=== PATIENT | male | born 1955 | race Hispanic/Latino ===

== ENCOUNTER 2016-08-20 11:11 | Day surgery (SDC) | payer OTHER ==
[~2016-08-20] VITALS: Ht 170.2 cm; Wt 80.7 kg
[~2016-08-20 11:11] MED LIST: AMLODIPINE5 MG PO; CYCLOBENZAPR10 MG PO; GARLIC1000 MG PO; GLUCOTROL EXTE2.5 M1 PO; METOPROLOL TART50 MG PO; MULTI VITAMIN A1 TAB PO; PROTONIX40 M2 PO; SAW PALMETTO160 MG PO; TIZANIDINE2 MG PO
[2016-08-20 14:58] VITALS: BP 124/70
== END 2016-08-20 14:45 | disposition home or self-care (01) | DRG 392 ==
LOC: ENDO 11:11 → ORM 18:00 → ENDO 18:15 → ORM 18:15
PROVIDERS: ATTEND Internal Medicine Gastroenterology
PROC: 0DJD8ZZ Inspection of Lower Intestinal Tract, Via Natural or Artificial Opening Endoscopic (ICD-10-PCS; principal; 2016-08-20)
DX: K59.00 Constipation, unspecified (principal); I10 Essential (primary) hypertension; R11.2 Nausea with vomiting, unspecified; K21.9 Gastro-esophageal reflux disease without esophagitis; E11.9 Type 2 diabetes mellitus without complications; I25.10 Atherosclerotic heart disease of native coronary artery without angina pectoris; E78.00 Pure hypercholesterolemia, unspecified; I25.2 Old myocardial infarction; K64.4 Residual hemorrhoidal skin tags; K64.8 Other hemorrhoids; Z95.1 Presence of aortocoronary bypass graft